=== PATIENT | female | born 1995 | race Two or more races ===

== ENCOUNTER 2020-11-18 22:18 | Emergency (ER) | payer MEDICAID ==
[~2020-11-18] VITALS: Ht 152.4 cm; Wt 61.4 kg
[2020-11-19] MEDS ORDERED: ACETAMINOPHEN 500 MG TABLET PO ONE (00:15)
[2020-11-19 02:22] VITALS: BP 126/72
== END 2020-11-19 03:14 | disposition home or self-care (01) ==
LOC: EMS 22:18
DX: S10.93XA Contusion of unspecified part of neck, initial encounter (principal); S80.812A Abrasion, left lower leg, initial encounter; S80.811A Abrasion, right lower leg, initial encounter; S00.81XA Abrasion of other part of head, initial encounter; R11.10 Vomiting, unspecified; Y04.2XXA Assault by strike against or bumped into by another person, initial encounter; Y93.89 Activity, other specified; Y92.89 Other specified places as the place of occurrence of the external cause; Y99.8 Other external cause status
CPT/HCPCS: 70450; 72125; 99285